=== PATIENT | female | born 1965 | race Two or more races ===

== ENCOUNTER 2016-06-27 09:40 | Emergency (ER) | payer MEDICAID ==
--- NOTE | 2016-06-27 12:21 | US ---
EXAMINATION: DUPLEX VENOUS DOPPLER ULTRASOUND:LEFT LOWER EXTREMITY CLINICAL INDICATION: Left lower extremity pain. COMPARISON: None TECHNIQUE: Both grayscale imaging and Doppler interrogation with spectral analysis and color flow was performed. Compression and flow with augmentation was also utilized. The common femoral vein to the posterior tibial and peroneal veins were assessed. FINDINGS:Appropriate compressibility and flow is demonstrated in the left common femoral, superficial femoral, popliteal, and peroneal and posterior tibial veins proximally. Normal Doppler flow with augmentation was also elicited. There is thrombosis within the greater saphenous vein with no extension into the deep venous system. No Doppler flow or compression is seen. IMPRESSION: 1. No evidence of deep venous thrombosis left lower extremity. 2. Thrombosis of the greater saphenous vein. Currently there is no extension into the deep venous system. The findings were uploaded to the electronic medical record for review at approximately 12:22 PM 06/27/2016
[2016-06-27] MEDS ORDERED: IBUPROFEN 600 MG TABLET ONE (13:39)
== END 2016-06-27 14:02 | disposition home or self-care (01) ==
LOC: ED 09:40
DX: I80.02 Phlebitis and thrombophlebitis of superficial vessels of left lower extremity (principal)
CPT/HCPCS: 99283 ×2; 93971; A9270